=== PATIENT | female | born 1995 | race Caucasian/White ===

== ENCOUNTER → 2020-08-30 | Day surgery (SDC) | payer OTHER ==
[2020-08-27 16:00] VITALS: BMI 25.6
[~2020-08-30] MED LIST: LACTATED RINGERS 1,000 ML IV SCH; LIDOCAINE 1% (10MG/ML) FOR IV START INTRADERMA ONE; PROPOFOL 10 MG/ML 20 ML VIAL IV ONE
[2020-08-30 07:40] VITALS: RESP 16; TEMP 97.2
--- NOTE | 2020-08-30 08:15 | P.GSHP ---
History of Present Illness H&P Date: 08/30/20 Chief Complaint: Abdominal pain The 25-year-old female who's had complaints of abdominal pain diarrhea. Patient being worked up for colonoscopy. Patient history of irritable bowel syndrome Past Medical History Additional Past Medical History / Comment(s): chronic diarrhea History of Any Multi-Drug Resistant Organisms: None Reported Past Surgical History: Section, Cholecystectomy Additional Past Surgical History / Comment(s): rt foot surg x3 Past Anesthesia/Blood Transfusion Reactions: No Reported Reaction Smoking Status: Never smoker - Past Family History Mother Family Medical History: No Reported History Medications and Allergies Home Medications Medication Instructions Recorded Confirmed Type Citalopram Hydrobromide [CeleXA] 10 mg PO QAM 08/27/20 08/30/20 History Etonogestrel [Nexplanon] 1 implant SQ [id number] 08/27/20 08/27/20 History Allergies Allergy/AdvReac Type Severity Reaction Status Date / Time No Known Allergies Allergy Verified 08/27/20 15:55 Surgical - Exam Vital Signs Temp Pulse Resp BP Pulse Ox 97.2 F L 99 16 141/83 99 08/30/20 07:38 08/30/20 07:38 08/30/20 07:38 08/30/20 07:38 08/30/20 07:38 - General well developed, well nourished, no distress - Eyes PERRL - ENT normal pinna - Neck no masses - Respiratory normal expansion - Cardiovascular Rhythm: regular - Abdomen Abdomen: soft, non tender Assessment and Plan Assessment: Abdominal pain, cramps. We'll perform colonoscopy
--- NOTE | 2020-08-30 08:24 | P.OP ---
Date of Procedure: 08/30/20 Preoperative Diagnosis: Abdominal pain, diarrhea Postoperative Diagnosis: Colonoscopy, rectal biopsy pathology pending Procedure(s) Performed: colonoscopy Anesthesia: MAC Surgeon: Thiago German Pathology: other (Random rectal biopsy) Condition: stable Disposition: PACU Description of Procedure: Patient's placed on the endoscopy table in the lateral position. She received IV sedation. Digital rectal exam was performed which revealed no stones. Flexible colonoscope was then placed patient anus and passed entire colon. The ileocecal valve was visualized. The cecum, ascending and transverse colon appeared normal. The descending and; sigmoid appeared normal. The scope was brought back the rectum. A random rectal biopsies performed due to her symptoms. Scope was then withdrawn for patient.
[2020-08-30 08:44] VITALS: BP 129/87; PULSE 78
== END | disposition home or self-care (01) ==
LOC: ORWHC2ENDO 07:13 → EDBD 09:00
PROVIDERS: ATTEND Surgery
DX: K58.0 Irritable bowel syndrome with diarrhea (principal); F41.9 Anxiety disorder, unspecified; F32.9 Major depressive disorder, single episode, unspecified; Z79.899 Other long term (current) drug therapy; Z90.49 Acquired absence of other specified parts of digestive tract; Z98.891 History of uterine scar from previous surgery; Z98.890 Other specified postprocedural states
CPT/HCPCS: 81025; 88305; 45380; J2704

== ENCOUNTER → 2020-09-07 | Outpatient (CLI) | payer OTHER ==
--- NOTE | 2020-09-07 17:53 | ECHOF ---
Referral Reason:I34 mitral valve disorder MEASUREMENTS -------- HEIGHT: 157.5 cm WEIGHT: 63.5 kg BP: RVIDd: 2.7 cm (< 3.3) IVSd: 1.0 cm (0.6 - 1.1) LVIDd: 3.6 cm (3.9 - 5.3) LVPWd: 1.2 cm (0.6 - 1.1) IVSs: 1.3 cm LVIDs: 2.4 cm LVPWs: 1.6 cm LAESV Index (A-L): 19.42 ml/m Ao Diam: 2.9 cm (2.0 - 3.7) AV Cusp: 1.7 cm (1.5 - 2.6) LA Diam: 3.2 cm (2.7 - 3.8) MV EXCURSION: 13.874 mm (> 18.000) MV EF SLOPE: 104 mm/s (70 - 150) EPSS: 0.5 cm MV E Jamie: 0.73 m/s MV DecT: 162 ms MV A Jamie: 0.92 m/s MV E/A Ratio: 0.79 RAP: 5.00 mmHg RVSP: 26.98 mmHg FINDINGS -------- Sinus rhythm. This was a technically adequate study. The left ventricular size is normal. Left ventricular wall thickness is normal. Overall left vent ricular systolic function is normal with, an EF between 55 - 60 %. The diastolic filling pattern is normal for the age of the patient 6.40. The right ventricle is normal in size. Normal LA size by volume 22+/-6 ml/m2. The right atrial size is normal. Mobile interatrial septum. The aortic valve is trileaflet and appears structurally normal. There is no evidence of aortic regu rgitation. There is no evidence of aortic stenosis. There is trace to mild mitral regurgitation. Mild tricuspid regurgitation present. There is no evidence of pulmonary hypertension. The right v entricular systolic pressure, as measured by Doppler, is 26.98mmHg. There is no pulmonic regurgitation present. The aortic root size is normal. IVC Not well visulized. There is no pericardial effusion. CONCLUSIONS -------- 1. The left ventricular size is normal. 2. Left ventricular wall thickness is normal. 3. Overall left ventricular systolic function is normal with, an EF between 55 - 60 %. 4. The diastolic filling pattern is normal for the age of the patient 6.40 5. Mobile interatrial septum. 6. There is trace to mild mitral regurgitation. 7. Mild tricuspid regurgitation present. [employer] TESTER: Courtney Loomis RDCS
== END | disposition home or self-care (01) ==
LOC: RADECHMAIN 13:57
PROVIDERS: ATTEND Family Medicine
DX: I08.1 Rheumatic disorders of both mitral and tricuspid valves (principal); Q21.1 Atrial septal defect
CPT/HCPCS: 93306